=== PATIENT | male | born 1965 | race Caucasian/White ===

== ENCOUNTER 2017-01-10 11:20 | Observation (INO) ==
[2017-01-10 12:48] LABS: Basophils % 0.4 %; Eosinophils # 0.1 K/mcL (0.0-0.6); Eosinophils % 1.3 %; Hematocrit 45.2 % (37.5-50.1); Hemoglobin 15.4 g/dL (12.9-16.9); Immature Granulocytes % 0.1 % (0-4); Lymphocytes # 1.6 K/mcL (0.6-4.6); Lymphocytes % 22.7 %; Mean Corpuscular HGB Conc 34.1 g/dL (31.6-35.5); Mean Corpuscular Hemoglobin 30.4 pg (28.0-33.3); Mean Corpuscular Volume 89.3 fL (83.0-100.0); Monocytes # 0.6 K/mcL (0.0-1.3); Monocytes % 8.7 %; Neutrophils # 4.6 K/mcL (1.6-8.9); Platelet Count 218 K/mcL (140-400); Red Blood Count 5.06 M/mcL (4.19-5.50); Segmented Neutrophils % 66.8 %
[2017-01-10 13:01] LABS: BUN/Creatinine Ratio 17 (6-26); Blood Urea Nitrogen 18 mg/dL (8-26); Calcium 9.5 mg/dL (8.6-10.8); Carbon Dioxide 26 mEq/L (19-29); Chloride 102 mEq/L (98-109); Glucose 101 mg/dL (70-99); Osmolality,Calculated 286 (280-300); Potassium 3.9 mEq/L (3.5-4.5); Sodium 137 mEq/L (136-145); eGFR For African Americans > 60 (> 60); eGFR For Non-African Americans > 60 (> 60)
[2017-01-10] MEDS ORDERED: Ondansetron 4 MG/2 ML VIAL IVP PRN (14:36)
[2017-01-10] MEDS ORDERED: *HR* Morphine 2 MG/ML SYRINGE IVP PRN (14:36)
--- NOTE | 2017-01-10 14:47 | Emergency Department Note ---
Disposition Clinical Impression: Weakness Chest pain Qualifiers: Chest pain type: unspecified Qualified Code(s): R07.9 - Chest pain, unspecified Dyspnea Qualifiers: Dyspnea type: unspecified Qualified Code(s): R06.00 - Dyspnea, unspecified Disposition: Admitted As Inpatient Condition: Good General Adult HPI - General Chief complaint: ED Shortness of Breath/Dyspnea Stated complaint: SOB/weakness Time Seen by Provider: 01/10/17 11:51 Source: patient Mode of arrival: ambulatory Limitations: no limitations Nursing Notes Reviewed: Yes Vital Signs Reviewed: Yes - History of Present Illness HPI Narrative: Patient presents for evaluation of weakness and fatigue. Patient took Cialis last night as a new medication and then awoke today to take Flomax. Patient was at work when he became short of breath and had some intermittent chest pressure that resolved after several minutes. Patient continues to feel short of breath and weak. Short of breath is worse with exertion. No previous history of similar. Otherwise healthy on no medications. At rest the patient still feels significantly fatigued. Patient does not have any overt distress is not hypoxic or 2 Or tachycardic. Possibly related to medications or ACS. Patient will need a cardiac workup and likely admission to the hospital until symptoms improved and investigations performed. Pain Scale: 0 - Related Data Home Medications Medication Instructions Recorded Confirmed Ibuprofen [Motrin] 200 mg PO Q6H PRN 01/10/17 01/10/17 Naproxen Sodium [Aleve] 440 mg PO QAM 01/10/17 01/10/17 Ranitidine HCl [Zantac] 150 mg PO QAM 01/10/17 01/10/17 Tadalafil [Cialis] 20 mg PO DAILY PRN 01/10/17 01/10/17 Tamsulosin [Flomax] 0.4 mg PO DAILY 01/10/17 01/10/17 Allergies Allergy/AdvReac Type Severity Reaction Status Date / Time No Known Allergies Allergy Verified 01/10/17 11:27 Review of Systems: CONSTITUTIONAL: No weight loss, fever, chills, weakness or fatigue. HEENT: Eyes: No visual changes. Ears, Nose, Throat: No hearing loss, difficulty talking or unable to swallow. SKIN: No rash or itching. CARDIOVASCULAR: No chest pain, chest pressure or chest discomfort. No palpitations or edema. RESPIRATORY: No shortness of breath, cough or sputum. GASTROINTESTINAL: No anorexia, nausea, vomiting or diarrhea. No abdominal pain or blood. GENITOURINARY: No burning on urination or hematuria. NEUROLOGICAL: No headache, dizziness, syncope, paralysis, ataxia, numbness or tingling in the extremities. No change in bowel or bladder control. MUSCULOSKELETAL: No muscle pain, back pain, joint pain or stiffness. Past Medical History - Past Medical History Medical history: Reports: no medical history Psychiatric history: Reports: anxiety - Social History Smoking Status: Never smoker Alcohol use: Reports: occasionally Drug use: Reports: none Physical Exam General appearance: NAD, conversant Eyes: anicteric sclerae, moist conjunctivae; PERRL HENT: Atraumatic; oropharynx clear with moist mucous membranes and no mucosal ulcerations Neck: Normal inspection; Trachea midline; FROM, supple Lungs: CTA, with normal respiratory effort and no intercostal retractions CV: RRR, no MRGs Abdomen: Soft, non-tender; no rebound or gaurding Extremities: No peripheral edema or extremity lymphadenopathy Skin: Normal temperature; no rash, ulcers or lesions Psych: Appropriate mood and affect Neuro: alert and oriented to person, place and time - General Limitations: no limitations General appearance: alert Course - Consultations Consultation #1: Discussed with Dr. Rodriguez. accepts admission Vital Signs Temperature 97.6 F 01/10/17 11:24 Pulse Rate 97 01/10/17 11:24 Respiratory Rate 18 01/10/17 11:24 Blood Pressure 127/79 01/10/17 11:24 O2 Sat by Pulse Oximetry 95 01/10/17 11:24 Temperature 97.5 F L 01/10/17 15:51 Pulse Rate 73 01/10/17 15:51 Respiratory Rate 16 01/10/17 15:51 Blood Pressure 121/80 01/10/17 15:51 O2 Sat by Pulse Oximetry 96 01/10/17 15:51 Oxygen Delivery Oxygen Delivery Nasal Cannula Medical Decision Making - Lab Data Lab results reviewed: Yes I reviewed the patient's lab results. Result diagrams: 01/10/17 12:35 01/10/17 12:35 Lab Results 01/10/17 01/10/17 01/10/17 Range/Units 12:35 12:35 12:35 WBC 6.8 (4.3-11.1) K/mcL RBC 5.06 (4.19-5.50) M/mcL Hgb 15.4 (12.9-16.9) g/dL Hct 45.2 (37.5-50.1) % MCV 89.3 (83.0-100.0) fL MCH 30.4 (28.0-33.3) pg MCHC 34.1 (31.6-35.5) g/dL RDW 12.0 (11.5-14.5) % Plt Count 218 (140-400) K/mcL MPV 11.0 (9.4-12.4) fL Immature Gran % 0.1 (0-4) % Seg Neutrophils % 66.8 % Lymphocytes % 22.7 % Monocytes % 8.7 % Eosinophils % 1.3 % Basophils % 0.4 % Neutrophils # 4.6 (1.6-8.9) K/mcL Lymphocytes # 1.6 (0.6-4.6) K/mcL Monocytes # 0.6 (0.0-1.3) K/mcL Eosinophils # 0.1 (0.0-0.6) K/mcL Basophils # 0.0 (0.0-0.2) K/mcL D-Dimer (0-500) ng/mLFEU Sodium 137 (136-145) mEq/L Potassium 3.9 (3.5-4.5) mEq/L Chloride 102 (98-109) mEq/L Carbon Dioxide 26 (19-29) mEq/L BUN 18 (8-26) mg/dL Creatinine 1.09 (0.72-1.25) mg/dL Est GFR ( Amer) > 60 (> 60) Est GFR (Non-Af Amer) > 60 (> 60) BUN/Creatinine Ratio 17 (6-26) Glucose 101 H (70-99) mg/dL Calculated Osmolality 286 (280-300) Calcium 9.5 (8.6-10.8) mg/dL Troponin I 0.00 (0-0.03) ng/mL B-Natriuretic Peptide (0-100) pg/mL 01/10/17 01/10/17 Range/Units 12:35 12:35 WBC (4.3-11.1) K/mcL RBC (4.19-5.50) M/mcL Hgb (12.9-16.9) g/dL Hct (37.5-50.1) % MCV (83.0-100.0) fL MCH (28.0-33.3) pg MCHC (31.6-35.5) g/dL RDW (11.5-14.5) % Plt Count (140-400) K/mcL MPV (9.4-12.4) fL Immature Gran % (0-4) % Seg Neutrophils % % Lymphocytes % % Monocytes % % Eosinophils % % Basophils % % Neutrophils # (1.6-8.9) K/mcL Lymphocytes # (0.6-4.6) K/mcL Monocytes # (0.0-1.3) K/mcL Eosinophils # (0.0-0.6) K/mcL Basophils # (0.0-0.2) K/mcL D-Dimer 324 (0-500) ng/mLFEU Sodium (136-145) mEq/L Potassium (3.5-4.5) mEq/L Chloride (98-109) mEq/L Carbon Dioxide (19-29) mEq/L BUN (8-26) mg/dL Creatinine (0.72-1.25) mg/dL Est GFR ( Amer) (> 60) Est GFR (Non-Af Amer) (> 60) BUN/Creatinine Ratio (6-26) Glucose (70-99) mg/dL Calculated Osmolality (280-300) Calcium (8.6-10.8) mg/dL Troponin I (0-0.03) ng/mL B-Natriuretic Peptide < 10 (0-100) pg/mL - Radiology Data Radiology results reviewed: Yes I reviewed the patient's radiology results. Chest X-Ray 01/10/17 11:58 IMPRESSION: No acute cardiopulmonary process. D/ / 01/10/2017 12:26:52 Zheng Mcmullen MD / bannernold Interpreting Provider: Zheng Mcmullen MD Attestation Statement - Attestation Attestation: I personally interviewed and examined this patient and my medical decision- making was reviewed with the Resident Physician, Dr. Mcclendon. I agree with the documented findings, disposition and treatment plan as described except to the extent set forth below. Patient is a 51-year-old white male with no prior medical problems who presents this morning following an episode of transient chest pain associated with ongoing shortness of breath and generalized fatigue which began a few hours prior to arrival to the ED at work. Patient denies any diaphoresis with this pain no radiation of the pain to the shoulder neck jaw or back. No abdominal pain, no nausea vomiting, no other associated symptoms. Patient states he just not been feeling right since he was recently started on some new medications which are Cialis and Flomax both of which taken in the last 24 hours. Physical exam findings I agree with as documented in the chart. Patient's EKG showed a normal sinus rhythm with no acute ischemic change. Patient's laboratory evaluation showed an initial normal troponin remainder of labs and chest x-ray were unremarkable. Patient with ongoing symptoms of dyspnea that worsened with exertion as well as generalized fatigue and chest pain that is resolved since arriving to the ED. Patient received aspirin and concerned with possible acute coronary syndrome. Discussed the case with the hospitalist who agreed to admit the patient for further evaluation and treatment of these symptoms.
[2017-01-10] MEDS ORDERED: Aspirin 81 MG TAB.CHEW PO ONE (15:01)
[2017-01-10] MEDS: 0.9 % Sodium Chloride 1,000 ML IVC SCH (16:25)
--- NOTE | 2017-01-10 17:24 | Internal Med History&Physical ---
Date of Encounter: 01/10/17 Time of Encounter: 16:45 Assessment and Plan (1) Shortness of breath Current visit: Yes Status: Acute We will place the patient into telemetry for observation Patient shortness of breath seems to be Cialis induced hypotension related reviewed patient's labs and EKG so far everything looks completely benign at this point we will trend on his troponin cont close monitoring placed on ASA as CVA prevention at his age started on IV fluids NS @ 100ml /hr will check TSH, FLP in AM will get 2 D Echo If 2 D Echo shows any structural abnormalities will consider further workup otherwise patient does not need any further workup also staff genetic counselor the patient about Cialis drug interactions with so many other medications Asked him talk to his primary care physician also about his other drug interactions (2) Dyspnea Current visit: Yes Status: Acute Qualifiers: Dyspnea type: unspecified Qualified Code(s): R06.00 - Dyspnea, unspecified (3) Weakness Current visit: Yes Status: Acute (4) BPH (benign prostatic hyperplasia) Current visit: Yes Status: Chronic will resume his Flomax from tomorrow Qualifiers: Qualified Code(s): N40.1 - Benign prostatic hyperplasia with lower urinary tract symptoms; R39.11 - Hesitancy of micturition (5) DVT prophylaxis Current visit: Yes Status: Acute Low risk SCD's only early ambulation Internal Medicine - H&P: HPI Chief complaint: Shortness of breath / weakness Admitted From: Emergency Dept Plans for Post Hospital Care: Home History of present illness: Mr. Kong is a 51 year old male with known past medical history of BPH, who took a Cialis 1st time last night, and Flomax is morning now he presented to ER complaining about since he took Cialis has been having some leg cramps, tingling in the legs, shortness of breath which seems to be worsened after he took a Flomax is morning. After coming to ER patient had a further workup done , everything came back is negative so far. When I examined him on the floor patient denied anymore chest pain or shortness of breath. He stated that he never had chest pain other than shortness of breath. Denied of any GDI/ symptoms Past Med Surg Social Fam HX - Past Medical History Medical history: no medical history Psychiatric history: anxiety - Past Surgical History Surgical History: appendectomy - Social History Smoking Status: Never smoker Smokeless Tobacco Status: No Alcohol use: occasionally Drug use: none - Family History Grandfather Living Status: Age at : 70 Cause of : Heart Attack Hx Family Cardiac Disorders: Yes (CAD, HTN,) Father Hx Family Cardiac Disorders: Yes (stroke) Hx Family Cancer: Yes (prostate) Internal Medicine - H&P: Meds Ibuprofen [Motrin] 200 mg PO Q6H PRN 01/10/17 [History] Naproxen Sodium [Aleve] 440 mg PO QAM 01/10/17 [History] Ranitidine HCl [Zantac] 150 mg PO QAM 01/10/17 [History] Tadalafil [Cialis] 20 mg PO DAILY PRN 01/10/17 [History] Tamsulosin [Flomax] 0.4 mg PO DAILY 01/10/17 [History] Allergies No Known Allergies Allergy (Verified 01/10/17 11:27) All Systems PM: A 10-system review of systems was performed and is negative for pertinent findings except as documented above in the HPI. Review of systems: All the systems are reviewed everything is benign except the systems and symptoms I mentioned in the history of present illness - Constitutional Vitals: Temp Pulse Resp BP Pulse Ox 97.5 F L 73 16 121/80 96 01/10/17 15:51 01/10/17 15:51 01/10/17 15:51 01/10/17 15:51 01/10/17 15:51 General appearance: Present: A&O X 3, pleasant, no acute distress - Head Head exam: Present: atraumatic, normal inspection - Neck Neck exam general surgery: Present: normal inspection, supple. Absent: tenderness - Respiratory Respiratory exam: Present: decreased breath sounds. Absent: accessory muscle use, rales, rhonchi, wheezes - Cardiovascular Cardiovascular exam: Present: RRR, +S1, +S2. Absent: diastolic murmur, gallop, rubs, systolic murmur - GI/Abdominal GI/Abdominal exam: Present: distended, normal bowel sounds, soft, no peritoneal signs. Absent: tenderness - Extremities Exam Extremities exam: Absent: calf tenderness, mottling, pedal edema, tenderness - Back Exam Back exam: Absent: CVA tenderness (L), CVA tenderness (R) - Psychiatric Psychiatric exam: Present: normal affect, normal mood Internal Med - H&P Results - Labs CBC & Chem 7: 01/10/17 12:35 01/10/17 12:35 - EKG Data -: EKG Interpreted by Myself (NSR, with VR - 73, NO ST changes. No T wave abnormalities) - Diagnostic Studies Chest x-ray Status: image reviewed by me (No acute infiltrates, no consolidations)
--- NOTE | 2017-01-10 17:59 | Electrocardiograph Report ---
[place] [id number] Test Date: 2017-01-10 Pat Name: Arnol Kong Department: 104 Room: 3A Gender: M Podiatry Doctor: JOSÉ : 1965 Requested By: Ashtyn Canela Order Number: [id number] Reading MD: Candice Bullard Measurements Intervals [place] Rate: 73 P: 47 SC: 150 QRS: 61 QRSD: 101 T: 59 QT: 360 QTc: 386 Interpretive Statements SINUS RHYTHM NONSPECIFIC T-WAVE ABNORMALITY Electronically Signed On 01-10-2017 17:57:58 EDT by Candice Bullard
[2017-01-11 00:56] LABS: Chol/HDL Ratio 7.7 (0-4.9)
[2017-01-11 01:48] LABS: Thyroid Stimulating Hormone 2.338 mcIU/mL (0.350-4.840)
[2017-01-11] MEDS ORDERED: Aspirin 81 MG TAB.CHEW PO SCH (09:00)
[2017-01-11] MEDS ORDERED: Famotidine 20 MG TABLET PO SCH (09:00)
[2017-01-11] MEDS: 0.9 % Sodium Chloride 1,000 ML IVC SCH (09:00)
[2017-01-11 10:52] VITALS: BP 134/84
--- NOTE | 2017-01-11 14:23 | Discharge Summary ---
Date of Encounter: 01/11/17 Time of Encounter: 08:40 - Discharge Diagnosis (1) Shortness of breath Priority: Primary Status: Resolved Comments: Symptoms have now resolved - likely related to Cialis induced hypotension Hypotension likely due to interaction between Cialis and Tamsulosin (2) BPH (benign prostatic hyperplasia) Priority: Secondary Status: Chronic Qualifiers: Lower urinary tract symptom presence: symptoms absent Qualified Code(s): N40.0 - Benign prostatic hyperplasia without lower urinary tract symptoms - Discharge Medications Prescriptions: Aspirin 81 mg PO DAILY #30 Simvastatin [Zocor] 20 mg PO HS #30 tablet Home Medications: Ibuprofen [Motrin] 200 mg PO Q6H PRN 01/10/17 [History] Ranitidine HCl [Zantac] 150 mg PO QAM 01/10/17 [History] Tamsulosin [Flomax] 0.4 mg PO DAILY 01/10/17 [History] Aspirin 81 mg PO DAILY #30 01/11/17 [Rx] Simvastatin [Zocor] 20 mg PO HS #30 tablet 01/11/17 [Rx] Allergies/Adverse Reactions: Allergies No Known Allergies Allergy (Verified 01/10/17 11:27) Date of admission: 01/10/17 14:46 Primary care physician: José Miguel Granda MD Anticipated date of discharge: 01/11/17 - Patient Status Disposition: Home, Self-Care Condition: Good Functional capacity at discharge: independent ambulation Overall status at discharge: patient is back to baseline - Discharge Instructions Instructions: Chest Pain (DC) Follow Up With: José Miguel Granda MD [Primary Care Provider] - 01/17/17 3:15 pm Forms: Work/School Release - Diet and Activity Activity: increase activity as tolerated Diet: low fat, low cholesterol Hospital course: Mr. Kong is a 51 year old male with past medical history of BPH. He presented to the ED with complaint of shortness of breath and weakness. Patient apparently took a Cialis the night before he came into the ED. He states he also took his Flomax in the morning. He then came in with leg cramps shortness of breath and generalized weakness. Initial workup was benign. Patient is placed in observation because of shortness of breath. EKG reveals sinus rhythm with no acute ST-T changes. Chest x-ray was negative for any acute cardiopulmonary process. Echocardiogram revealed LVEF 60-65% with no valvular dysfunction and no wall motion abnormality. LV and RV structure and function are normal. Troponin is negative 3. Patient did have elevated LDL and triglycerides. He is being discharged on aspirin and statin. Patient's symptoms are likely due to interaction between Cialis and Flomax. His workup is completely benign at this time. He has been advised about drug interactions. He has also been advised to discuss with his primary care physician about that these drug interactions. No other acute events or complications during his stay in the hospital. Patient has been explained about his condition and plan of care. He understood and agreed. No unanswered questions. Patient states he feels better and wants to go home today. Patient is being discharged in a stable condition. - Time Spent with Patient Total time spent providing and/or coordinating discharge services: Less than 30 minutes - Constitutional Vitals: Temp Pulse Resp BP Pulse Ox 98.0 F 86 16 134/84 96 01/11/17 10:49 01/11/17 10:49 01/11/17 10:49 01/11/17 10:49 01/11/17 10:49 General appearance: Present: A&O X 3, pleasant, no acute distress, answers questions appropriately - Head Head exam: Present: atraumatic - Eye Eye exam: Present: EOMI - Neck Neck exam general surgery: Present: supple - Respiratory Respiratory exam: Absent: CTAB, rales, rhonchi, wheezes, tachypnea - Cardiovascular Cardiovascular exam: Present: RRR, +S1, +S2 - GI/Abdominal GI/Abdominal exam: Present: soft, no peritoneal signs. Absent: distended, firm , guarding, rigid, tenderness - Extremities Exam Extremities exam: Present: radial pulses palpable and symetrical. Absent: cyanotic, pedal edema, tenderness - Neurological Exam Neurological exam: Present: alert, oriented X3, no focal deficits. Absent: facial droop, speech deficit
== END 2017-01-11 15:24 | disposition home or self-care (01) ==
LOC: 3ANU 11:20 → EMEROO 11:20 → 3ANU 14:47
PROVIDERS: ADMIT Family Medicine; ATTEND Internal Medicine

== ENCOUNTER 2021-06-10 17:36 | Inpatient (IN) ==
[2021-06-10] MEDS ORDERED: Ipratropium 1 PUFF INHALER IH PRN (22:29)
[2021-06-10] MEDS ORDERED: Acetaminophen 325 MG TABLET PO PRN (22:30)
[2021-06-10] MEDS ORDERED: Naloxone 0.4 MG/ML INJ IVP PRN (22:30)
[2021-06-10] MEDS ORDERED: Ondansetron 4 MG/2 ML VIAL IVP PRN (22:30)
[2021-06-10] MEDS ORDERED: *HR* Dextrose 50 % in Water (Syg) 50 ML SYRINGE IVP PRN (22:31)
[2021-06-10] MEDS ORDERED: Dextrose Gel 15 GM/37.5 ML TUBE PO PRN ×2 (22:31)
[2021-06-10] MEDS ORDERED: D5% in Water 1,000 ML IVC PRN (22:31)
[2021-06-11] MEDS ORDERED: Remdesivir 200 MG in 0.9 % Sodium Chloride 100 ML IVPB ONE (02:00)
[2021-06-11 02:11] LABS: Hematocrit 45.9 % (37.5-50.1); Mean Corpuscular HGB Conc 34.9 g/dL (31.6-35.5); Mean Corpuscular Hemoglobin 31.7 pg (28.0-33.3); Mean Corpuscular Volume 90.9 fL (83.0-100.0); Mean Platelet Volume 11.4 fL (9.4-12.4); Platelet Count 179 K/mcL (140-400); Red Blood Count 5.05 M/mcL (4.19-5.50); Red Cell Distribution Width 12.1 % (11.5-14.5); White Blood Count 4.2 K/mcL (4.3-11.1)
[2021-06-11 02:26] LABS: Albumin 3.8 g/dL (3.5-5.7); Albumin/Globulin Ratio 1.2 (1.1-2.2); BUN/Creatinine Ratio 24 (6-26); Bilirubin,Direct 0.1 mg/dL (0.0-0.2); Bilirubin,Indirect 0.6 mg/dL (0.0-1.0); Bilirubin,Total 0.7 mg/dL (0.3-1.0); Blood Urea Nitrogen 25 mg/dL (6-20); Calcium 8.4 mg/dL (8.6-10.3); Carbon Dioxide 31 mEq/L (23-29); Chloride 91 mEq/L (98-107); Globulin 3.1 g/dL (2.4-3.5); Glucose 291 mg/dL (70-105); Osmolality,Calculated 291 (280-300); Potassium 3.2 mEq/L (3.5-5.1); Sodium 133 mEq/L (136-145); Total Protein 6.9 g/dL (6.4-8.9); eGFR For African Americans > 60 (> 60); eGFR For Non-African Americans > 60 (> 60)
[2021-06-11 02:28] LABS: C-Reactive Protein 71 mg/L (Less than 10); Creatine Kinase 308 Units/L (30-223); Lactate Dehydrogenase 315 Units/L (140-271)
[2021-06-11 02:41] LABS: Estimated Average Glucose 177 mg/dl; Hemoglobin A1C 7.8 %
[2021-06-11] MEDS: *HR* Enoxaparin 40 MG/0.4 ML SYRINGE SQ SCH (06:28)
[2021-06-11] MEDS: Insulin LISPRO 300 UNITS/3 ML VIAL SUBQ SCH ×3 (08:09→17:07)
[2021-06-11 23:11] LABS: Ferritin 703 ng/mL (20-250)
[2021-06-12] MEDS: Remdesivir 100 MG in 0.9 % Sodium Chloride 100 ML IVPB SCH (02:06)
[2021-06-12 06:09] LABS: Albumin 3.6 g/dL (3.5-5.7); Albumin/Globulin Ratio 1.3 (1.1-2.2); Bilirubin,Direct 0.1 mg/dL (0.0-0.2); Bilirubin,Indirect 0.5 mg/dL (0.0-1.0); Bilirubin,Total 0.6 mg/dL (0.3-1.0); Globulin 2.8 g/dL (2.4-3.5); Total Protein 6.4 g/dL (6.4-8.9)
[2021-06-12] MEDS: *HR* Enoxaparin 40 MG/0.4 ML SYRINGE SQ SCH (06:31)
[2021-06-12] MEDS: Insulin LISPRO 300 UNITS/3 ML VIAL SUBQ SCH ×3 (08:46→17:10)
[2021-06-12] MEDS: Furosemide 20 MG/2 ML VIAL IVP SCH (12:18)
[2021-06-13] MEDS: Remdesivir 100 MG in 0.9 % Sodium Chloride 100 ML IVPB SCH (01:53)
[2021-06-13] MEDS: *HR* Enoxaparin 40 MG/0.4 ML SYRINGE SQ SCH (05:44)
[2021-06-13] MEDS: Furosemide 20 MG/2 ML VIAL IVP SCH (07:50)
[2021-06-13] MEDS: Insulin LISPRO 300 UNITS/3 ML VIAL SUBQ SCH ×3 (08:03→17:15)
[2021-06-13 19:03] LABS: Basophils % 0.1 %; Eosinophils % 0.1 %; Hematocrit 44.9 % (37.5-50.1); Hemoglobin 15.9 g/dL (12.9-16.9); Lymphocytes # 0.7 K/mcL (0.6-4.6); Lymphocytes % 10.3 %; Mean Corpuscular HGB Conc 35.4 g/dL (31.6-35.5); Mean Corpuscular Volume 93.2 fL (83.0-100.0); Mean Platelet Volume 11.1 fL (9.4-12.4); Monocytes # 0.5 K/mcL (0.0-1.3); Monocytes % 6.7 %; Neutrophils # 5.5 K/mcL (1.6-8.9); Platelet Count 275 K/mcL (140-400); Red Blood Count 4.82 M/mcL (4.19-5.50); Red Cell Distribution Width 11.9 % (11.5-14.5); Segmented Neutrophils % 81.8 %
[2021-06-13 19:22] LABS: Alanine Aminotransferase 28 Units/L (7-52); Albumin 3.6 g/dL (3.5-5.7); Albumin/Globulin Ratio 1.2 (1.1-2.2); Alkaline Phosphatase 50 Units/L (34-104); Aspartate Amino Transferase 23 Units/L (13-39); BUN/Creatinine Ratio 27 (6-26); Bilirubin,Direct 0.2 mg/dL (0.0-0.2); Bilirubin,Indirect 0.7 mg/dL (0.0-1.0); Bilirubin,Total 0.9 mg/dL (0.3-1.0); Blood Urea Nitrogen 30 mg/dL (6-20); C-Reactive Protein 28 mg/L (Less than 10); Calcium 8.4 mg/dL (8.6-10.3); Carbon Dioxide 32 mEq/L (23-29); Chloride 93 mEq/L (98-107); Globulin 3.1 g/dL (2.4-3.5); Glucose 262 mg/dL (70-105); Osmolality,Calculated 293 (280-300); Potassium 3.5 mEq/L (3.5-5.1); Sodium 134 mEq/L (136-145); Total Protein 6.7 g/dL (6.4-8.9); eGFR For African Americans > 60 (> 60); eGFR For Non-African Americans > 60 (> 60)
[2021-06-13 19:23] LABS: White Blood Count 6.7 K/mcL (4.3-11.1)
[2021-06-13] MEDS: Insulin DETEMIR 100 UNIT/ML X5UNITS SUBQ SCH (20:41)
[2021-06-14] MEDS: Remdesivir 100 MG in 0.9 % Sodium Chloride 100 ML IVPB SCH (01:41)
[2021-06-14 02:46] LABS: Albumin 3.5 g/dL (3.5-5.7); Albumin/Globulin Ratio 1.3 (1.1-2.2); Bilirubin,Direct 0.1 mg/dL (0.0-0.2); Bilirubin,Indirect 0.6 mg/dL (0.0-1.0); Bilirubin,Total 0.7 mg/dL (0.3-1.0); Globulin 2.7 g/dL (2.4-3.5); Total Protein 6.2 g/dL (6.4-8.9)
[2021-06-14] MEDS: *HR* Enoxaparin 40 MG/0.4 ML SYRINGE SQ SCH (06:02)
[2021-06-14] MEDS: allopurinoL 300 MG TABLET PO SCH (08:01)
[2021-06-14] MEDS: Insulin LISPRO 300 UNITS/3 ML VIAL SUBQ SCH ×3 (08:02→17:25)
[2021-06-14] MEDS: Furosemide 20 MG/2 ML VIAL IVP SCH (08:02)
[2021-06-14] MEDS: Insulin DETEMIR 100 UNIT/ML X5UNITS SUBQ SCH (21:58)
[2021-06-15] MEDS: Remdesivir 100 MG in 0.9 % Sodium Chloride 100 ML IVPB SCH (03:15)
[2021-06-15] MEDS: *HR* Enoxaparin 40 MG/0.4 ML SYRINGE SQ SCH (05:04)
[2021-06-15 06:52] LABS: Albumin 3.4 g/dL (3.5-5.7); Albumin/Globulin Ratio 1.4 (1.1-2.2); Bilirubin,Direct 0.2 mg/dL (0.0-0.2); Bilirubin,Indirect 0.5 mg/dL (0.0-1.0); Bilirubin,Total 0.7 mg/dL (0.3-1.0); Globulin 2.5 g/dL (2.4-3.5); Total Protein 5.9 g/dL (6.4-8.9)
[2021-06-15 07:42] VITALS: PULSE 69
[2021-06-15] MEDS: Furosemide 20 MG/2 ML VIAL IVP SCH (08:48)
[2021-06-15] MEDS: allopurinoL 300 MG TABLET PO SCH (08:48)
[2021-06-15] MEDS: Insulin LISPRO 300 UNITS/3 ML VIAL SUBQ SCH ×2 (08:48→11:22)
[2021-06-15 10:21] VITALS: BP 102/70; TEMP 98.8; O2SAT 92
== END 2021-06-15 14:51 | disposition home or self-care (01) | DRG 177 ==
LOC: 2ANU → SUATTDRO 20:58
PROVIDERS: ADMIT Family Medicine; ATTEND Internal Medicine